=== PATIENT | female | born 1935 | race Caucasian/White ===

== ENCOUNTER 2022-06-18 09:39 | Outpatient (CLI) | payer MEDICARE, SELFPAY | END 2022-06-18 09:40 | disposition home or self-care (01) | LOC: NFLDREF 06-19 07:08 | PROVIDERS: PCP Physician Assistant Medical; Referring Provider Physician Assistant Medical; Visit Provider Physician Assistant Medical | DX: Z00.00 Encounter for general adult medical examination without abnormal findings (principal); E78.5 Hyperlipidemia, unspecified; I10 Essential (primary) hypertension | CPT/HCPCS: 80053; 80061 ==

== ENCOUNTER 2023-09-16 09:11 | Outpatient (CLI) | payer MEDICARE, SELFPAY | END 2023-09-16 09:12 | disposition home or self-care (01) | LOC: NFLDREF 09-20 15:30 | PROVIDERS: PCP Physician Assistant Medical; Referring Provider Physician Assistant Medical; Visit Provider Physician Assistant Medical | DX: I10 Essential (primary) hypertension (principal); E78.5 Hyperlipidemia, unspecified | CPT/HCPCS: 80053; 80061 ==

== ENCOUNTER 2025-03-14 15:30 | Outpatient (CLI) | payer MEDICARE, SELFPAY | END 2025-03-14 15:31 | disposition home or self-care (01) | LOC: LKVREF 15:31 | PROVIDERS: PCP Physician Assistant Medical; Visit Provider Physician Assistant Medical | DX: M79.89 Other specified soft tissue disorders (principal) | CPT/HCPCS: 80053; 80061; 83880; 87086 ==